=== PATIENT | female | born 1940 | race Caucasian/White ===

== ENCOUNTER 2018-12-15 20:17 | Inpatient (IN) | payer OTHER ==
[~2018-12-15] VITALS: Ht 154.9 cm; Wt 61.7 kg
[2018-12-15 20:19] VITALS: BP 110/67
[2018-12-15 22:16] LABS: URINE BILIRUBIN NEGATIVE (Negative); URINE BLOOD NEGATIVE (Negative); URINE CLARITY CLEAR; URINE COLOR YELLOW; URINE GLUCOSE-RANDOM* NEGATIVE (Negative); URINE KETONES TRACE (Negative); URINE NITRITE-REFLEX NEGATIVE (Negative); URINE PROTEIN (DIPSTICK) TRACE (Negative); URINE SPECIFIC GRAVITY 1.025 (1.005-1.035); URINE UROBILINOGEN 0.2 E.U./dl (0.2-1.0)
[2018-12-15 22:26] LABS: URINE LEUKOCYTES-REFLEX 1+ (Negative)
[2018-12-15 22:29] LABS: ABSOLUTE NEUTROPHILS 4.8 thou/uL (1.4-8.2); BASOPHILS 0.5 % (0.0-2.0); EOSINOPHILS 1.4 % (0.0-3.0); HEMATOCRIT 38.5 % (37.0-47.0); HEMOGLOBIN 12.9 gm/dL (12.0-15.0); LYMPHOCYTES 26.4 % (24.0-44.0); MCH 31.3 pg (26.0-34.0); MCHC 33.6 g/dL (28.0-37.0); MCV 93.3 fL (80.0-100.0); MONOCYTES 7.7 % (1.0-8.0); PLATELET COUNT 282 thou/uL (150-400); RBC 4.13 mil/uL (4.20-5.00); RDW 15.1 % (10.5-14.5); WBC 7.5 thou/uL (4.0-11.0)
[2018-12-15 22:37] LABS: ANION GAP 11 mmol/L (7-16); BUN 15 mg/dL (7-18); CALCIUM 8.3 mg/dL (8.5-10.1); CHLORIDE 108 mmol/L (98-107); CO2 26 mmol/L (21-32); GLUCOSE 97 mg/dL (74-106); POTASSIUM 3.1 mmol/L (3.5-5.1); SODIUM 145 mmol/L (136-145)
[2018-12-15 22:42] LABS: BACTERIA-REFLEX 1-9 Few /HPF (None Seen); CRYSTALS None Seen /LPF (None Seen); HYALINE CASTS >10 Many /LPF (None Seen); MUCUS 0-3 Light strn/LPF (None Seen); SQUAMOUS 0-3 Few /LPF (0-3); URINE RBC 0-2 Rare /HPF (0-2); WBC CLUMPS Few (None Seen)
[2018-12-15 22:49] LABS: ALBUMIN 2.9 g/dL (3.4-5.0); LIPASE 35 U/L (73-393); MAGNESIUM 1.6 mg/dL (1.8-2.4); SGOT 39 U/L (15-37); SGPT 24 U/L (30-65); TOTAL BILIRUBIN 0.3 mg/dL (<0.1-1.0); TOTAL PROTEIN 6.5 g/dL (6.4-8.2); TROPONIN-I <0.06 ng/mL (<0.06)
[2018-12-16 01:00] VITALS: BP 110/67
[2018-12-16 01:51] LABS: CALCIUM 7.9 mg/dL (8.5-10.1); CREATININE 0.7 mg/dL (0.6-1.0)
[2018-12-16 01:52] LABS: MAGNESIUM 1.6 mg/dL (1.8-2.4); POTASSIUM 4.4 mmol/L (3.5-5.1)
--- NOTE | 2018-12-16 03:39 | NUR ---
Pt taken up to 5S to be admitted, as explained to pt and pt's in the ED. Family became angry that this was a psychiatric unit and that patient has "dementia which is not curable". Explained to pt's that she is admitted for electrolyte disturbances and that this locked unit is safer for her to be in. Pt's was paranoid himself, stated we are "paddding the bill" and that she has not even been seen by a doctor. Explained that the in the ER saw her, to which he states is not "their" doctor. Dr. Schuster was contacted and gave permission to KANDY Damico for pt to be signed out AMA. Pt's scratched through most of the form and added quite a bit of his own verbage, but did sign. IV removed and pt taken out via WC.
--- NOTE | 2018-12-16 16:09 | EKG ---
[place] [address] [facility] [place] [address] ELECTROCARDIOGRAM REPORT Name: TERESA MCKENZIE Room #: [address] [place] [address] [place] .R.#: [id number] ������������������ Admission: 12/15/18 ������������������ Attend Phys: Tim Schuster MD Discharge: 12/16/18 ������������������ Date of : 36 Report #: [id number] ����������������������������������������������������������������� [id number] THIS REPORT FOR: //name// [facility] ED Test Date: 2018-12-15 Test Time: 22:22:54 Pat Name: TERESA MCKENZIE Department: Room: [facility] Gender: F Production Recorder: GIDEON : 1940 Requested By: Joselito Huff Order Number: [id number] MD: Seng Thornton Measurements Intervals [place] Rate: 92 P: 17 [place]: 192 QRS: -85 QRSD: 134 T: 6 QT: 424 QTc: 525 Interpretive Statements Sinus rhythm RBBB and LAFB Compared to ECG 05/09/2007 12:48:50 Sinus bradycardia no longer present Electronically Signed On 12-16-2018 16:09:30 CDT by Seng Thornton [email or web address] ��������������������������������������������� <ELECTRONICALLY SIGNED> ���������������������������������������� By: Seng Thornton MD, [facility] ��������������������������������������������� 12/16/18 [id number] Seng Thornton MD, [facility] /EPI
--- NOTE | 2018-12-20 15:20 | NUR ---
Late note: On 12/16/18 the patient was not admitted. She discharged AMA, per Dr. Bettencourt
== END 2018-12-16 03:40 | disposition left against medical advice (07) | DRG 884 ==
LOC: ER 20:17 → EROBS 23:50 → ER 23:50 → SBH 12-16 02:28 → EROBS 12-16 02:28 → SBH 12-16 03:40
PROVIDERS: Emergency Medicine; ADMIT Psychiatry & Neurology Psychiatry
DX: F03.90 Unspecified dementia, unspecified severity, without behavioral disturbance, psychotic disturbance, mood disturbance, and anxiety (principal); K21.9 Gastro-esophageal reflux disease without esophagitis; Z53.21 Procedure and treatment not carried out due to patient leaving prior to being seen by health care provider; I10 Essential (primary) hypertension; E78.00 Pure hypercholesterolemia, unspecified; Z79.82 Long term (current) use of aspirin; Z79.899 Other long term (current) drug therapy

== ENCOUNTER 2019-02-14 22:25 | Emergency (ER) | payer OTHER ==
[~2019-02-14] VITALS: Ht 152.4 cm; Wt 56.7 kg
[~2019-02-14 22:25] MED LIST: ASPIR 8181 MG PO; FLEXERIL PO; NAMENDA 10 MG T10 MG PO; NORCO 10-325 T1 EACH PO; NORVASC5 MG PO; PHENERGAN 25 MG25 M1 PO; PREVAGEN PO; ZANTAC 150MG T150 MG PO; ZOCOR20 MG PO
[2019-02-15] MEDS ORDERED: KEFLEX500 M1 PO (03:08)
[2019-02-15 03:20] VITALS: BP 97/56
[2019-02-15 04:52] LABS: HEMATOCRIT 32.5 % (37.0-47.0); HEMOGLOBIN 10.8 gm/dL (12.0-15.0); MCH 31.4 pg (26.0-34.0); MCHC 33.3 % (28.0-37.0); MCV 94.2 fL (80.0-100.0); PLATELET COUNT 410 thou/uL (150-400); RBC 3.45 mil/uL (4.20-5.00); RDW 14.5 % (10.5-14.5); WBC 6.8 thou/uL (4.0-11.0)
[2019-02-15 04:53] LABS: METAMYELOCYTES 1 %; PLATELET ESTIMATE INCREASED
[2019-02-15 04:54] LABS: ANION GAP 9 mmol/L (7-16); BUN 21 mg/dL (7-18); CHLORIDE 105 mmol/L (98-107); CO2 27 mmol/L (21-32); POTASSIUM 4.2 mmol/L (3.5-5.1); SODIUM 141 mmol/L (136-145)
[2019-02-15 04:55] LABS: CALCIUM 8.7 mg/dL (8.5-10.1); CREATININE 0.9 mg/dL (0.6-1.0); GLUCOSE 102 mg/dL (74-106); MAGNESIUM 2.2 mg/dL (1.8-2.4); TROPONIN-I <0.06 ng/mL (<0.06)
[2019-02-15 04:58] LABS: SQUAMOUS 0-3 Few /LPF (0-3); URINE BILIRUBIN NEGATIVE (Negative); URINE BLOOD NEGATIVE (Negative); URINE CLARITY CLEAR; URINE COLOR YELLOW; URINE GLUCOSE-RANDOM* NEGATIVE (Negative); URINE KETONES NEGATIVE (Negative); URINE LEUKOCYTES-REFLEX NEGATIVE (Negative); URINE NITRITE-REFLEX POSITIVE (Negative); URINE PROTEIN (DIPSTICK) NEGATIVE (Negative); URINE RBC 0-2 Rare /HPF (0-2); URINE SPECIFIC GRAVITY >= 1.030 (1.005-1.035); URINE UROBILINOGEN 0.2 E.U./dl (0.2-1.0); URINE WBC-REFLEX 0-5 Rare /HPF (0-5)
[2019-02-15 04:59] LABS: BACTERIA-REFLEX >30 Many /HPF (None Seen); CRYSTALS None Seen /LPF (None Seen); HYALINE CASTS 4-10 Moderate /LPF (None Seen); MUCUS 0-3 Light strn/LPF (None Seen)
--- NOTE | 2019-02-15 07:58 | EKG ---
[facility] [place] [address] ELECTROCARDIOGRAM REPORT Name: JONAHTERESA Cathy Room #: [facility]#: [id number] Admission: 02/14/19 Attend Phys: Discharge: 02/15/19 Date of : 36 Report #: [id number] THIS REPORT FOR: //name// [facility] ED Test Date: 2019-02-15 Test Time: 00:27:42 Pat Name: TERESA MCKENZIE Department: Room: Gender: F Air/Ocean Export Clerk: oscar : 1940 Requested By: Carol Reddy Order Number: [id number] MD: Seng Thornton Measurements Intervals [place] Rate: 86 P: 22 MD: 204 QRS: -80 QRSD: 135 T: 12 QT: 434 QTc: 519 Interpretive Statements Sinus rhythm RBBB and LAFB Baseline wander in lead(s) II Compared to ECG 12/15/2018 22:22:54 No significant change was found Electronically Signed On 02-15-2019 7:58:08 CDT by Seng Thornton [email or web address] <ELECTRONICALLY SIGNED> By: Seng Thornton MD, [facility] 02/15/19 0758 Seng Thornton MD, [facility] /EPI
== END 2019-02-15 03:20 | disposition left against medical advice (07) ==
LOC: ER 22:25
PROVIDERS: Emergency Medicine
DX: R41.82 Altered mental status, unspecified (principal); R55 Syncope and collapse; I10 Essential (primary) hypertension; K21.9 Gastro-esophageal reflux disease without esophagitis; E78.00 Pure hypercholesterolemia, unspecified; F03.90 Unspecified dementia, unspecified severity, without behavioral disturbance, psychotic disturbance, mood disturbance, and anxiety; Z91.041 Radiographic dye allergy status